=== PATIENT | male | born 1960 | race Caucasian/White ===

== ENCOUNTER 2021-12-06 12:40 | Emergency (ER) | payer OTHER, SELFPAY ==
[2021-12-06] VITALS (42 sets, daily range): BP systolic 110–141; BP diastolic 54–94; PULSE 65–129; RESP 10–41; TEMP 37.3–38.4; O2SAT 90–98
--- NOTE | ~2021-12-06 | XR_ITS ---
EXAMINATION: XR chest 1V portable DATE: 12/06/2021 13:03 INDICATION: Cough and fever. TECHNIQUE: A single frontal view of the chest was obtained. COMPARISON: Chest single view 06/02/2009 FINDINGS: The chest demonstrates clear lungs without pneumonia, pleural effusion, or pneumothorax. Th e heart size is normal. A left upper extremity peripherally inserted central venous catheter (PICC) i s seen with tip at the superior cavoatrial junction. IMPRESSION: 1. No acute cardiopulmonary disease. Reviewed, dictated and finalized at location A.
--- NOTE | ~2021-12-06 | CT_ITS ---
EXAMINATION: CT abdomen pelvis w con DATE: 12/06/2021 14:16 INDICATION: abd pain and left hip pain TECHNIQUE: Computed tomography (CT) of the abdomen and pelvis was performed with 100 mL Omnipaque-300 intravenous contrast. Automated exposure control and iterative reconstruction technique were employe d. The dose-length product was 1280.47 mGy-cm. COMPARISON: None. FINDINGS: Lower thorax: Small volume right and trace left pleural fluid. Bibasilar atelectasis. Severe coronary artery calcifications/stenting. Liver: Normal. Biliary/Gallbladder: Gallbladder is normal. No bile duct dilation. Pancreas: No mass or duct dilation. Spleen: Normal. Adrenals:No mass. Kidneys: No mass, stone, or hydronephrosis. Bilateral perinephric stranding. GI tract: No small or large bowel dilation. Normal appendix. Mesentery/Peritoneum: No ascites, mass, or free air. Retroperitoneum: No mass. Atherosclerotic abdominal aortic and/or arterial calcifications. Pelvis: Bladder wall thickening in a partially distended bladder. Gas within the bladder lumen. Penil e implant. Soft Tissues: Large fluid and gas collection in the left hip joint extending to the anterior skin gregory face with synovial enhancement and numerous antibiotic beads. Bones: Status post left femoral head resection with superior displacement of the proximal femur. No osseous erosion or periosteal change to suggest osteomyelitis. IMPRESSION: Small right and trace left pleural effusions. Status post left femoral head resection, with reported joint irrigation and antibiotic bead placement. Large residual gas containing left hip joint effusion , sterility cannot be assessed by imaging. Possible cystitis. Reviewed, dictated and finalized at location [facility]. IMPRESSION: Small right and trace left pleural effusions. Status post left femoral head res ection, with reported joint irrigation and antibiotic bead placement. Large res idual gas containing left hip joint effusion, sterility cannot be assessed by i maging. Possible cystitis.
--- NOTE | 2021-12-06 13:00 | ED.FEVER ---
HPI - Fever General Chief Complaint: Fever <DO Avis Mcarthur Last Filed: 12/07/21 09:03> Stated Complaint: Fever <DO Avis Mcarthur Last Filed: 12/07/21 09:03> Time Seen by Provider: 12/06/21 12:42 <Gabriele Mendez DO - Last Filed: 12/07/21 09:03> Source: RN notes reviewed <DO Avis Mcarthur Last Filed: 12/07/21 09:03> History of Present Illness HPI Narrative: Patient presents emergency department from [facility] via EMS for fever. The history is per the patient as well as the nurse practitioner at the patient's [facility] that I spoke with on the phone. The patient has a history of having a left hip replacement done in August that subsequently became infected and he had to go for a washout and spacer placement and has been cared for at [facility]. The patient had been discharged to the [facility] last night and subsequently this morning had a temperature of 101 ?F. Per the staff at that time they try to get patient to return to [facility] the patient that time refusing want to come to our facility for further evaluation patient states he has pain in his left leg as well as nausea but states that his left leg pain is chronic. The patient did receive a COVID test at the hospital yesterday prior to discharge which was negative per staff at [facility]. Patient states he did have chills as well as shaking earlier he denies any chest pain or shortness of breath denies vomiting diarrhea or any other symptoms patient does have a PICC line in the left upper arm and has been receiving 2 g of Rocephin daily <Gabriele Mendez DO - Last Filed: 12/07/21 09:03> Related Data Allergies/Adverse Reactions: Allergies Allergy/AdvReac Type Severity Reaction Status Date / Time prednisone Allergy Intermediate MIGRANES-MOOD Verified 12/06/21 15:24 SWINGS <DO Avis Mcarthur Last Filed: 12/07/21 09:03> Review of Systems Review of Systems: Gen.: See HPI Eyes: Denies eye pain or visual change ENT: Denies congestion Respiratory: Denies shortness of breath or cough CV: Denies chest pain or palpitations GI: Denies abdominal pain emesis or diarrhea reports nausea Musculoskeletal: See HPI Neuro: Denies numbness, tingling, weakness or focal weakness Skin: Denies rash Except as documented, all other systems reviewed and negative <Gabriele Mendez DO - Last Filed: 12/07/21 09:03> [facility] Past Medical History Medical History: Medical History (Updated 12/06/21 @ 16:17 by Gabriele Mendez DO) Left hip prosthetic joint infection <Gabriele Mendez DO - Last Filed: 12/07/21 09:03> Social History Social History: Social History (Updated 12/06/21 @ 13:02 by Gabriele Mendez DO) Smoking status: Never smoker <Gabriele Mendez DO - Last Filed: 12/07/21 09:03> Exam Narrative: APPEARANCE: No acute distress, nontoxic, resting in bed EYES: EOMI HEENT: Normocephalic, atraumatic, OMM RESPIRATORY: No respiratory distress Clear to auscultation bilaterally with no rhonchi wheezing or rales. CARDIOVASCULAR: Regular rate and rhythm without murmurs rubs or gallops. ABDOMINAL: Soft, nondistended palpation left lower quadrant no tenderness left upper quadrant, right upper quadrant right lower quadrant no rebound or guarding MUSCULOSKELETAl: Moves all extremities. No clubbing, cyanosis or edema. Tenderness to palpation over the left hip with pain with movement left hip there are 2 overlying surgical wounds that are clean dry and intact with no surrounding erythema no tenderness left knee or ankle dorsalis pedis pulse 2+ NEURO: Awake and alert. Following commands, speech normal, no focal deficits SKIN:: Warm, dry. No rashes lesions or abrasions PSYCHIATRIC: Normal affect/mood, <Gabriele Mendez DO - Last Filed: 12/07/21 09:03> Course Course Emergency Course: Called and discussed with Dr. Alvarado at [facility]. Accepts transfer at this time request patient be
[2021-12-06 13:28] LABS: Basophils Absolute Auto 0.1 K/mm3 (0.0-0.1); Basophils Percent Auto 0.4 % (0.2-1.2); Eosinophils Absolute Auto 0.1 K/mm3 (0-0.3); Eosinophils Percent Auto 0.8 % (0-4.4); Hematocrit 28.2 % (42.0-52.0); Hemoglobin 8.9 g/dL (14.0-18.0); Immature Granulocyte Absolute 0.35 K/mm3 (0.00-0.031); Immature Granulocyte Percent A 2.7 % (0-0.5); Lymphocytes Absolute Auto 0.59 K/mm3 (0.9-3.2); Lymphocytes Percent Auto 4.5 % (18.3-44.2); Mean Corpuscular HGB Conc 31.6 g/dl (32-36); Mean Corpuscular Hemoglobin 27.1 pg (26-34); Mean Platelet Volume 8.9 fl (7.4-10.4); Monocytes Absolute Auto 0.3 K/mm3 (0.1-0.6); Monocytes Percent Auto 2.2 % (2.6-8.5); Neutrophils Absolute Auto 11.6 K/mm3 (1.3-6.7); Neutrophils Percent Auto 89.4 % (45.5-73.1); Platelet Count Result 403 k/mm3 (150-375); Red Blood Count 3.28 M/mm3 (4.6-6.20)
[2021-12-06 13:37] LABS: Alanine Aminotransferase 11 U/L (6-50); Albumin Level 3.4 g/dL (3.5-5.1); Alkaline Phosphatase 129 U/L (38-126); Anion Gap 8 mmol/L (8-16); Aspartate Amino Transferase 19 U/L (17-59); Bilirubin,Total 0.4 mg/dL (0.2-1.3); Blood Urea Nitrogen 17 mg/dL (9-20); Calcium 8.1 mg/dL (8.4-10.2); Carbon Dioxide 29 mmol/L (22-30); Chloride 96 mmol/L (98-107); Estimated Glomerular Filt Rate > 60; Glucose 224 mg/dL (65-110); Potassium 3.3 mmol/L (3.4-5.0); Sodium 133 mmol/L (137-145)
[2021-12-06 13:38] LABS: INR 1.1
[2021-12-06 13:39] LABS: Lactic Acid Reflex 1.4 mmol/L (0.7-2.0); Partial Thromboplastin Time 29.5 SECONDS (22.3-36.8)
[2021-12-06 13:54] LABS: RBC Urine 51-75 /hpf (0-2)
[2021-12-06 14:01] LABS: Add Urine Microscopic? YES; Appearance Urine Clear (Clear); Bilirubin Urine Negative (Negative); Blood Urine 2+ (Negative); Color Urine Yellow (Yellow); Glucose Urine UA Trace mg/dL (Negative); Ketones Urine Trace mg/dL (Negative); Leukocyte Esterase Ur Negative LEU/UL (Negative); Nitrate Urine Negative (Negative); Protein Urine 3+ mg/dL (Negative); Urobilinogen Urine 0.2 mg/dL (<2.0)
[2021-12-06] MEDS: SODIUM CHLORIDE 0.9% IV 1,000 ML 999 ML IV CONT (14:04)
[2021-12-06 14:19] LABS: SARS-CoV-2 RNA PCR Negative
--- NOTE | 2021-12-06 15:22 | PC.NURSE ---
spoke with Aurelia with transfer facility and she has contacted [facility] for bed placement. [phone]
[2021-12-06 20:04] LABS: Glucose Point of Care 168 mg/dl (65-105)
[2021-12-06 23:30] LABS: Glucose Point of Care 223 mg/dl (65-105)
[2021-12-07 01:03] VITALS: PULSE 86; RESP 12
[2021-12-07 01:15] VITALS: BP 140/79; PULSE 84; RESP 15
[2021-12-07] MEDS: ONDANSETRON INJ 4 MG/2 ML VIAL (02:19)
[2021-12-07] MEDS: LORazepam INJ (*CRX) 2 MG/ML VIAL 1 MG IV PUSH (02:24)
[2021-12-07 04:01] VITALS: BP 140/79; PULSE 78; RESP 18; O2SAT 98
== END 2021-12-07 04:05 | disposition short-term general hospital (02) ==
PROVIDERS: Emergency Provider Emergency Medicine
DX: T84.52XA Infection and inflammatory reaction due to internal left hip prosthesis, initial encounter (principal); Z20.822 Contact with and (suspected) exposure to COVID-19
CPT/HCPCS: 36415; 71045; 74177; 80053; 81001; 82948; 83605; 85025; 85610; 85730; 87040; 96365; 96366; 96367; 96375; 99285; C9803; J0131; J2060; J2405; J2543; J7030; Q9967; U0003; U0005